=== PATIENT | male | born 1975 | race Hispanic/Latino ===

== ENCOUNTER 2018-05-16 20:21 | Emergency (ER) | payer SELFPAY ==
[~2018-05-16] VITALS: Ht 162.6 cm; Wt 82.8 kg
[~2018-05-16 20:21] MED LIST: AMOXIL500 MG OR; ATUSS DS OR
[2018-05-16 21:39] LABS: INFLUENZA B NONE DETECTED (NONE DETECT)
[2018-05-16] MEDS ORDERED: GENTAMICIN0.3 % OU (21:55)
[2018-05-16] MEDS ORDERED: AMOXICILLIN500 MG PO (21:55)
[2018-05-16 22:29] VITALS: BP 146/77
== END 2018-05-16 22:26 | disposition home or self-care (01) | DRG 153 ==
LOC: ED 20:21
PROVIDERS: Emergency Medicine
DX: J02.0 Streptococcal pharyngitis (principal); H10.33 Unspecified acute conjunctivitis, bilateral; R50.9 Fever, unspecified; R09.81 Nasal congestion; R51 Headache

== ENCOUNTER 2018-11-17 18:07 | Emergency (ER) | payer SELFPAY ==
[~2018-11-17] VITALS: Ht 162.6 cm; Wt 84.0 kg
[~2018-11-17 18:07] MED LIST changes: +AMOXICILLIN500 MG PO; +GENTAMICIN0.3 % OU
[2018-11-17 18:10] VITALS: BP 150/86
[2018-11-17] MEDS ORDERED: MEDDOSEPAK PO (18:30)
== END 2018-11-17 18:54 | disposition home or self-care (01) | DRG 607 ==
LOC: ED 18:07
DX: L25.9 Unspecified contact dermatitis, unspecified cause (principal); I10 Essential (primary) hypertension

== ENCOUNTER 2022-02-17 19:17 | Emergency (ER) | payer SELFPAY ==
[~2022-02-17] VITALS: Ht 162.6 cm; Wt 81.8 kg
[~2022-02-17 19:17] MED LIST changes: +MEDDOSEPAK PO
[2022-02-17 22:33] VITALS: BP 134/79
[2022-02-17 22:33] LABS: HEMOGLOBIN 13.9 g/dl (14.0-18.0); IMMATURE GRANULOCYTES 0.3 % (0.0-5.0); MEAN CORPUSCULAR HGB 29.5 pG CALC (26.0-32.0); MEAN CORPUSCULAR HGB CONC 33.9 g/dL CAL (32.0-36.0); NEUT# 1.55 thou/uL (1.82-7.42); RED BLOOD COUNT 4.71 mill/uL (4.70-6.10); RED CELL DISTRI WIDTH 12.8 % (11.5-15.5)
[2022-02-17 22:35] LABS: URINE BILIRUBIN - DIPSTICK NEGATIVE (NEGATIVE); URINE BLOOD DIPSTICK NEGATIVE (NEGATIVE); URINE COLOR YELLOW; URINE GLUCOSE - DIPSTICK NEGATIVE (NEGATIVE); URINE KETONE NEGATIVE (NEGATIVE); URINE LEUK ESTERASE NEGATIVE (NEGATIVE); URINE PROTEIN - DIPSTICK NEGATIVE (NEG-TRACE); URINE UROBILINOGEN - DIPSTICK 0.2 E.U./dL (0.2)
[2022-02-17 22:36] LABS: URINE NITRITE - DIPSTICK NEGATIVE (Negative)
[2022-02-17 22:45] VITALS: BP 134/80
[2022-02-17 22:45] LABS: ALBUMIN 4.4 g/dL (3.2-5.0); ALKALINE PHOSPHATASE 68 u/l (38-126); ANION GAP 12 (6-22 (CALC)); BILIRUBIN, TOTAL 0.5 mg/dL (0.0-1.4); BUN 13 mg/dL (9-20); BUN/CREATININE RATIO 14 (12-20 (CALC)); CARBON DIOXIDE 27 mmol/l (22-30); CHLORIDE 108 mmol/l (95-108); CREATININE 0.9 mg/dL (0.7-1.3); GFR FOR AFR.AMER. > 60 ML/MIN (>=60 (CALC)); GFR OTHER RACES > 60 ML/MIN (>=60 (CALC)); SGOT/AST 33 u/l (17-59); SODIUM 142 mmol/l (137-146); TOTAL PROTEIN 7.7 g/dL (6.3-8.2)
[2022-02-17 23:01] VITALS: BP 147/85
[2022-02-17] MEDS ORDERED: DOXYCYCL HYC100 M4 PO (23:03)
[2022-02-17] MEDS ORDERED: NAPROXEN500 MG PO (23:05)
[2022-02-17 23:15] VITALS: BP 147/85
[2022-02-18] MEDS ORDERED: DOXY-CAPS100 MG PO (14:30)
== END 2022-02-17 23:15 | disposition home or self-care (01) | DRG 103 ==
LOC: ED 19:17
PROVIDERS: Emergency Medicine
DX: R51.9 Headache, unspecified (principal); T63.391A Toxic effect of venom of other spider, accidental (unintentional), initial encounter